=== PATIENT | female | born 1980 | race Hispanic/Latino ===

== ENCOUNTER 2019-06-01 09:50 | Day surgery (SDC) | payer OTHER ==
[2019-05-29 15:38] LABS: Urine Appearance CLEAR; Urine Bilirubin NEGATIVE (NEG); Urine Blood TRACE (NEG); Urine Color YELLOW; Urine Glucose NEGATIVE (NEG); Urine Protein NEGATIVE (NEG); Urine pH 6.5 (5.0-7.0)
[2019-05-29 15:40] LABS: Absolute Lymphocytes (CBC) 2.2 K/uL (0.7-4.9); Basophils % 0.5 % (0-1.3); Hematocrit 39.5 % (36.0-45.0); Lymphocytes % 27.8 % (15.3-44.8); MPV 8.9 fL (7.6-11.3); RBC Red Blood Cell Count 4.43 M/uL (3.86-4.86)
[2019-05-29 15:43] LABS: Urine Microscopic Reflex NO UMIC
[2019-06-01 10:04] LABS: Specific Gravity 1.025 (1.005-1.030)
[2019-06-01] MEDS ORDERED: SCOPOLAMINE HYDROBROMIDE PATCH TD ONE (10:08)
[2019-06-01] MEDS ORDERED: Ringers Lactate 1,000 ML IV ONE ×3 (10:09→12:03)
[2019-06-01] MEDS ORDERED: CEFAZOLIN/SWI 2gm 2 GM/20 ML SYR ONE (10:17)
[2019-06-01] MEDS ORDERED: LIDOCAINE 2% MPF 5 ML VIAL ONE (10:38)
[2019-06-01] MEDS ORDERED: MIDAZOLAM HCL 2 MG/2 ML INJ ONE (10:38)
[2019-06-01] MEDS ORDERED: ROCURONIUM 50 MG/5 ML VIAL IV ONE ×2 (10:38→13:53)
[2019-06-01] MEDS ORDERED: PROPOFOL 200 MG/20 ML VIAL IV ONE (10:38)
[2019-06-01] MEDS ORDERED: dexAMETHasone 10 MG/ML VIAL ONE (10:38)
[2019-06-01] MEDS ORDERED: FENTANYL CITR 250 MCG/5 ML ONE (10:38)
[2019-06-01] MEDS ORDERED: ONDANSETRON 4 MG/2 ML VIAL ONE ×2 (10:38→14:19)
[2019-06-01] MEDS ORDERED: NA CHLORIDE 0.9% 1,000 ML ONE (12:04)
[2019-06-01] MEDS ORDERED: KETOROLAC 30 MG/ML INJ ONE (14:19)
[2019-06-01] MEDS ORDERED: GLYCOPYRROLATE 0.2 MG/ML SYR ONE (14:19)
[2019-06-01] MEDS ORDERED: NEOSTIGMINE 1 MG/ML -10 ML VIAL ONE (14:19)
[2019-06-01] MEDS ORDERED: MEPERIDINE HCL 25 MG/0.5 ML ONE (14:21)
[2019-06-01] MEDS: MORPHINE 4 MG/ML SYR ONE ×4 (15:05→15:20)
[2019-06-01] MEDS: HYDROMORPHONE HCL 1 MG/ML INJ ONE ×4 (15:30→15:45)
[2019-06-01] MEDS ORDERED: NA CHLORIDE 0.9% 500 ML ONE (18:03)
--- NOTE | 2019-06-02 02:15 | OP ---
Date of Procedure: 06/01/2019 Surgeon: Elissa Gonzáles MD Alfalfa Dehydrator Operator: Jennifer Patel. Preoperative Diagnoses: Pelvic pain, irregular periods, and dysmenorrhea. Postoperative Diagnoses: Pelvic pain, irregular periods, dysmenorrhea, uterine scar probably endomet riosis of the scar, right hydrosalpinx. Procedure Performed: 1.Total laparoscopic hysterectomy, bilateral salpingectomy. 2.Excision of the scar mass, most likely endometriosis and cystoscopy. Estimated Blood Loss: 50. Specimens: Uterus, bilateral tubes, and endometriosis scar mass or scar mass. Anesthesia: General endotracheal. Findings: Uterus scar to the anterior abdominal wall. Adhesions taken down sharply and then the flora rine fundus was adhered to the anterior abdominal scar. Uterine muscles/endometriosis susp ected. Normal bilateral ovaries. Right tube swollen. Uterus enlarged. The left inferior epigastri c was injured while placing the Isaak-Chidi for retraction of the sigmoid epiploica and this was sutured with the help of a 3-0 Monocryl using the same Isaak-Chidi needle. EBL probably 50 from this. No other bleeding. Indications For Procedure: Patient is a 39-year-old with pain, irregular bleeding. She was a referr al from Dr. Reno. She had complaints of heavy bleeding, irregular periods, abdominal suprapubic autumn n radiating to left and right lower quadrants, also radiates to the lower back, severe dysmenorrhea, 2 C-sections. Patient has been tried on oral contraceptives, Depo, without any relief. Cavity evalu ation was performed. There was scarring of the endometrial cavity. Limited evaluation of endometria l tissue because it was difficult to obtain due to the scar. After we discussed about all the options including diagnostic laparoscopy with possible endometriosis excision versus hysterectomy along with salpingectomy and endometriosis excision, discussed about th e benefits and risks of both procedures, and the patient was in enough pain that she wanted to procee d with a hysterectomy. No future fertility desires for this patient. She has underwent bilateral tu bal ligation, so proceeded with the hysterectomy. Description Of Procedure: After informed consent was verified, patient was taken back to the OR, anisa ean in a supine fashion on the operating table. After general anesthesia was given, she was placed i n a dorsal lithotomy position, arms tucked by the side, SCDs started, and 2 g of Ancef given. After a time-out was done, the case was started. Pelvic exam showed anteflexed uterus slightly enlarged an d attached to the anterior abdominal wall. No adnexal masses. Decreased mobility of the uterus. On exam in the office, there was tenderness in the anterior left. Abdomen, vulva, vagina, and perineum were prepped and draped in a sterile fashion. Buckley was placed to drain the bladder and attached to cysto tubing for retrograde filling. Large VCare fixed in place . This area was draped. 1 cm supraumbilical incision was made along the scar of the abdominoplasty, where umbilicus was reimplanted. Fascia was found, incised, tagged with 0 Vicryl sutures. The dada toneum found, picked up with 2 long hemostats, incised, and peritoneum entered with S-retractors. Th e Temitope was introduced. Site of entry was checked, unremarkable. Patient was placed in Trendelenbu rg position and we could see all the anterior abdominal wall scarring with omentum, sigmoid, uterus. After placing a 5 mm left lower quadrant port, scissors were used to take down the adhesions of the o mentum as well as the rest of the uterus. The large scar to the anterior abdominal wall sc ar site appeared to be like a muscular part of the uterus, most likely smooth muscle of the uterus at tached to the anterior abdominal wall. This could be an endometriotic implant or just muscle that wa s attached. The ovary was caught while the was completed last time. So, plan was to disse ct this separate, but first this was detached from the uterus by push-spread technique taking it down in multiple bites with the LigaSure as well as scissors. Once this was done, the piece attached to the anterior scar was left alone. Then, proceeded with checking both courses of the ureters. They w ere undistorted. Both ovaries normal. Tube on the right, swollen, left interrupted, but no patholog y. 10 mm suprapubic incision was made. Then, on visualization of the pelvis, I needed retraction of the sigmoid epiploica, were picked up, 3-0 Monocryl was placed through them, and Isaak-Chidi was used in the left upper quadrant with a small incision with 11 blade. Then, once I went through the needle, there was bleeding likely from the inferior epigastrium. There was no way I could figure out where these were. Due to the fact that she had the abdominoplasty, anatomical distortion was signif icant. Then, needle was taken out from the area. It was bleeding. Then, the same 3-0 Monocryl sutu re was placed 1 on either side medial and lateral and then tied on top for ligating the vessel. Ther e was excellent hemostasis. No bleeding, and the gas was taken down. There was no bleeding. The mesosalpinx, tube, utero-ovarian ligament, round ligament, anterior and posterior broad ligaments were all taken down. The broad ligament was taken down to skeletonize the vessels. The bladder fla p was raised. On the opposite side, similar dissection was performed on all the same anatomical stru ctures. The bladder flap was raised with the help of the monopolar hook blade and vesicovaginal spac e was entered and the bladder was dissected inferiorly in the midline and on the sides as well immedi ately lateral. Vessels were taken down with the help of the basket tip bipolar and vessel sealer, th e LigaSure, on both sides. Cardinal ligaments were taken down. Circumferential colpotomy with the h elp of a monopolar hook blade. Specimen detached, pulled out through the vagina. There were fibroid s on the anterior wall of the fundus. These were also removed along with the uterus. Then, the tube s were removed. First, the distal parts of the tubes were removed on both sides and retrieved and se nt for specimen. Then, attention was directed to the anterior abdominal wall mass. This was pulled down and made sure that the bladder was visualized after filling and draining, then the mass was exci sed with the help of the sharp dissection with scissors as well as the LigaSure. Once this was compl etely excised and detached, the scar appeared to be completely free without any problems. This was r etrieved and sent down as a specimen. Thorough irrigation and suction were performed in the pelvic c avity. The colpotomy was completely hemostatic. Two simple 0 Vicryl sutures at both ends and 3 figu [id number] in the middle all for reattachment and re-suspension of the vagina. Once this was done , there was excellent hemostasis. Excellent support. Trocars were removed under direct vision. The Monocryl was also removed releasing the bowel. Then, gas was desufflated. Umbilical incision close d with the help of a 0 Vicryl with tying the tagged sutures together and with a simple 0 Vicryl the s uprapubic fascial incision. All skin incisions were closed with interrupted 4-0 Vicryl. Cystoscopy with 17-Samoan sheath, 30-degree lens, normal saline for distention. Strong jets of urine from both ureteric orifices. It was a limited cystoscopy just for checking the patency. No evidence of any tr auma. Bladder was drained. Vagina was cleaned up and visualized with excellent support and closure. Instrument, needle, and sponge counts were done and were correct at the end of the case. Patient w as recovered from anesthesia and taken to PACU in stable condition. EBL 50. SK/FABRICIO Voice ID: [id number] Report ID: [id number]
== END 2019-06-01 18:30 | disposition home or self-care (01) ==
LOC: OR 09:50
PROVIDERS: ATTEND Obstetrics & Gynecology
PROC: 0UT74ZZ Resection of Bilateral Fallopian Tubes, Percutaneous Endoscopic Approach (ICD-10-PCS; 2019-06-01)
PROC: 0UT94ZZ Resection of Uterus, Percutaneous Endoscopic Approach (ICD-10-PCS; principal; 2019-06-01 11:30)
DX: D25.2 Subserosal leiomyoma of uterus (principal); L91.0 Hypertrophic scar; N92.6 Irregular menstruation, unspecified; N94.6 Dysmenorrhea, unspecified; N70.11 Chronic salpingitis; K66.0 Peritoneal adhesions (postprocedural) (postinfection); Z87.891 Personal history of nicotine dependence
CPT/HCPCS: 58571; 85025; 36415; 86900; 86850; 81025; 86901; 88305; 88307; 81003; J2704; J2710; J2250; J3010; J1100; J2175; J1170 ×2; J0690; J7030; J2405 ×2

== ENCOUNTER 2020-07-30 08:10 | Day surgery (SDC) | payer OTHER ==
[2020-07-29 11:32] LABS: Potassium 4.1 mmol/L (3.5-5.1)
[2020-07-29 12:00] LABS: Absolute Lymphocytes (CBC) 2.3 K/uL (0.7-4.9); Basophils % 0.4 % (0-1.3); Hematocrit 38.5 % (36.0-45.0); Lymphocytes % 27.3 % (15.3-44.8); MPV 8.7 fL (7.6-11.3); RBC Red Blood Cell Count 4.32 M/uL (3.86-4.86)
[2020-07-30] MEDS ORDERED: CEFOXITIN/SWI 1gm 1 GM/10 ML SYR ONE (08:46)
[2020-07-30] MEDS ORDERED: Ringers Lactate 1,000 ML IV ONE (08:46)
[2020-07-30] MEDS ORDERED: FENTANYL CITR 100 MCG/2 ML ONE (11:39)
[2020-07-30] MEDS ORDERED: propofoL 200 MG/20 ML VIAL IV ONE (11:39)
[2020-07-30] MEDS ORDERED: MIDAZOLAM HCL 2 MG/2 ML INJ ONE (11:40)
[2020-07-30] MEDS ORDERED: LIDOCAINE 2% MPF 5 ML VIAL ONE (11:41)
[2020-07-30] MEDS ORDERED: ONDANSETRON 4 MG/2 ML VIAL ONE (11:49)
[2020-07-30] MEDS ORDERED: KETOROLAC 30 MG/ML INJ ONE (11:50)
[2020-07-30] MEDS ORDERED: dexAMETHasone 4 MG/ML VIAL ONE (11:50)
[2020-07-30] MEDS ORDERED: GLYCOPYRROLATE 0.2 MG/ML SYR ONE (12:05)
[2020-07-30] MEDS ORDERED: EPHEDRINE SULF 50 MG/ML VIAL ONE (12:07)
[2020-07-30 12:22] VITALS: O2SAT 100
[2020-07-30] MEDS ORDERED: HYDROCODONE/APAP 7.5/325 MG TAB PO ONE (13:35)
[2020-07-30] MEDS ORDERED: HYDROCODONE/APAP 7.5/325 MG TAB ONE (13:46)
[2020-07-30 15:03] VITALS: BP 106/64; TEMP 97
--- NOTE | 2020-07-31 00:21 | OP ---
Date of Procedure: 07/30/2020 Surgeon: Juan Pablo Walker MD Residential Insurance Inspector: None. Preoperative Diagnoses: Anal fissure and perianal mass and rectal pain. Postoperative Diagnoses: Anal fissure and perianal mass and rectal pain. Procedures: Exam under anesthesia, proctoscopy, fissurectomy, excision of perianal mass. Estimated Blood Loss: Minimal. Specimen: Fissure and perianal mass. Findings: As above. Anesthesia: General. Complications: None. Disposition: The patient tolerated the procedure in stable condition and taken to the Recovery in go od general condition. Description Of Procedure: The patient was brought to the OR and placed in the supine position. Gene ral anesthesia was begun. The patient was prepped and draped in usual sterile fashion. Exam under a nesthesia revealed posterior midline fissure and an anterior right-sided skin mass most likely a larg e skin tag and intraluminally no evidence of acute disease was identified. There may have been some small internal hemorrhoids. They were clinically insignificant and no need for any intervention at t his time. Subsequently, Marcaine 0.5% was infiltrated locally and a 15 blade was used to cut out the fissure and sent to Pathology as specimen. This was approximately 3 x 1 cm and then the mucosal def ect was closed with a running 4-0 chromic suture and then a Harmonic Scalpel was used to excise the p erianal skin tag on the anterior right side. Bleeding was controlled with cautery and then a rectal pack consisting of Gel-Foam, Surgicel, and Vaseline gauze ws placed and sterile dressing was applied. The patient was awakened and taken to Recovery in good general condition. Discharge Note: The patient will go to Day Surgery and home when stable. Disposition: Home. Condition: Stable. Discharge Instructions: Resume home medications and diet. Activity as tolerated. No heavy lifting. Sitz baths q.i.d. Follow up in my office in 2 weeks, call for appointment. Tylenol No. 3 one tabl et p.o. q.4 p.r.n. pain. Bactrim b.i.d. and p.r.n. Sitz baths q.i.d. high-fiber diet Met amucil 1 tablespoon p.o. t.i.d. x7 I had seen on [facility] and by the is [id number]. cardiology office thank. ONDINA/FABRICIO Voice ID: [id number] Report ID: [id number]
--- OUTSIDE RECORDS SUMMARY | 2020-08-01 10:54 | XMS REPORT | Continuity of Care Document ---
:1980 Author Organization [facility] t Address [address] [place] [address] Care Team Providers Name Role Phone Lab, [facility] Fam Pob I Attending Clinician Unavailable Problems This patient has no known problems. Allergies, Adverse Reactions, Alerts This patient has no known allergies or adverse reactions. Medications This patient has no known medications. Procedures This patient has no known procedures. Encounters Start End Encounter Admission Attending Care Care Encounter Source Date/Time Date/Time Type Type Clinicians Facility Department ID 2020-05-30 2020-05-30 Laboratory Lab, [facility] [id number] 16:11:26 16:31:26 Only Fam Pob I [facility] [id number] [place] [id number] [facility]io [phone] [address] Results This patient has no known results.
--- OUTSIDE RECORDS SUMMARY | 2020-08-01 10:54 | XMS REPORT | Summary of Care ---
:1980 Author Organization [facility] Address [address] [place] [id number] Care Team Providers Name Role Phone Pcp, Patient Does Not Have A Primary Care Provider +[id number] 0-0000 Reason for Visit Reason Comments Cough Sore Throat Chills Encounter Details Date Type Department Care Team Description 05/30/2020 Laboratory Only [facility] Family Jeb Weems, WINDOWS LAPTOP TECHNICIAN [address] [place] [id number] Suspected Covid-19 Medicine - [facility], [facility] Pob I Virus Infection [address] [place] [address] (Primary D x) [place] [address] Allergies Not on Filedocumented as of this encounter (statuses as of 05/30/2020) Medications Not on filedocumented as of this encounter (statuses as of 05/30/2020) Active Problems Not on filedocumented as of this encounter (statuses as of 05/30/2020) Social History Tobacco Use Types Packs/Day Years Used Date Never Assessed Sex Assigned at Date Recorded Not on file COVID-19 Exposure Response Date Recorded In the last month, have you been in contact with No / Unsure 05/30/2020 4:14 PM CDT someone who was confirmed or suspected to have Coronavirus / COVID-19? documented as of this encounter Last Filed Vital Signs Not on filedocumented in this encounter Nursing Notes Rhea Shelton MA - 05/30/2020 4:20 PM Blake Torres is a 40 year old female here for COVID Screening with a Nasopharyngeal Swab All droplet and contact precautions taken with appropriate PPE worn while interacting with patient. ? Goggles ? N95 Mask ? Gloves ? Gown RR 19 Pulse Ox 100% Patient educated on plan of care for visit, swabbing technique, risks and benefits of test and length of time to receive results. Verbal consent obtained to perform test. CDC Fact Sheet for Patients nCoV Diagnostic Panel dated 01/07/2020 and Factsheet What to Do if Sick with COVID 19 12/18/19 provided. Patient swabbed per appropriate nasopharyngeal technique, and patient tolerated well. Patient was discharged from the testing clinic in stable condition. Rhea Shelton MA 05/30/2020 4:14 PM documented in this encounter Plan of Treatment Name Type Priority Associated Diagnoses Order S chedule COVID-19 (PCR MOLECULAR LAB Routine Suspected Covid-1 9 Virus Expected: 05/30/2020, TESTING) Infection Expires: 2020 documented as of this encounter Results Not on filedocumented in this encounter Visit Diagnoses Diagnosis Suspected Covid-19 Virus Infection - [facility] documented in this encounter Additional Health Concerns Infection Onset Date Last Indicated Resolved Time COVID-19 Rule Out 05/30/2020 05/30/2020 documented as of this encounter Insurance Payer Benefit Plan / Subscriber ID Effective Dates Phone Addre ss Type Group [facility] [id number] 2020-Present PPO (Work) [id number] documented as of this encounter
== END 2020-07-30 14:00 | disposition home health service (06) ==
LOC: OR 08:10
PROVIDERS: ATTEND Surgery
PROC: 0DBQXZZ Excision of Anus, External Approach (ICD-10-PCS; 2020-07-30)
PROC: 0DB Gastrointestinal System, Excision (ICD-10-PCS; principal; 2020-07-30 10:00)
DX: K60.2 Anal fissure, unspecified (principal); R22.9 Localized swelling, mass and lump, unspecified; Z20.828 Contact with and (suspected) exposure to other viral communicable diseases
CPT/HCPCS: 85025; 80048; 36415; 88304; 46615; 46220; U0002; J2704; J1100; J2250; J3010; J7120; J2405; 88305